=== PATIENT | female | born 1965 | race Caucasian/White ===

== ENCOUNTER 2019-07-06 15:38 | Outpatient (CLI) | payer BC, SELFPAY ==
--- NOTE | 2019-07-06 15:52 | MR_ITS ---
WS: [id number] MRI THORACIC SPINE WITHOUT CONTRAST TECHNIQUE: Sagittal T1, T2 and STIR imaging. Axial T2 imaging. Noncontrast imaging obtained. CLINICAL INFORMATION: RADICULOPATHY OF CERVICOTHORACIC REGION COMPARISON: None. FINDINGS: Mild thoracic curve. No acute compression. No high-grade central canal stenosis. Cord signal is lyn l. No significant disc bulging. A few tiny shallow central protrusions in the mid and lower thoracic spine without significant spinal canal narrowing. Shallow central protrusion at T6-T7, T9-10, T10-11, T11 -12 without significant central canal stenosis. Mild to moderate bony foraminal narrowing more p rominent at right T9-T10, bilateral T10-11, Endplate Schmorl's node at T12 superior endplate. Moderate facet arthropathy lower thoracic spine. Normal visualized thoracic aorta. Adrenal glands are normal. No hydronephrosis. Partially visualized left thyroid nodule measuring 1.8 cm. This can be followed up with thyroid ultrasound. MR/MR thoracic spin wo con* [id number] IMPRESSION: 1. Mild thoracic curve. No acute compression fractures. 2. No high-grade central canal stenosis. Cord signal is normal. 3. Tiny shallow central protrusion at T6-T7 with slight effacement of ventral thecal sac. 4. Mild to moderate bony foraminal narrowing worse at right T9-T10 and bilater al T10-11. 5. Moderate facet arthropathy in the lower thoracic spine. 6. Partially visualized left thyroid nodule measuring 1.8 cm. This can be foll owed up with thyroid ultrasound.
== END 2019-07-06 15:39 | disposition home or self-care (01) ==
LOC: RADSHAW 15:47
PROVIDERS: PCP Nurse Practitioner Family; Visit Provider Nurse Practitioner Family
DX: M54.13 Radiculopathy, cervicothoracic region (principal); M51.24 Other intervertebral disc displacement, thoracic region; E04.1 Nontoxic single thyroid nodule
CPT/HCPCS: 72146

== ENCOUNTER 2020-04-01 09:13 | Outpatient (RCR) | payer BC, SELFPAY | END 2020-04-03 23:59 | disposition home or self-care (01) | LOC: SPT 09:13 | PROVIDERS: PCP Nurse Practitioner Family; Referring Provider Nurse Practitioner Family; Visit Provider Nurse Practitioner Family | DX: M54.9 Dorsalgia, unspecified (principal); G89.29 Other chronic pain | CPT/HCPCS: 97161 ==

== ENCOUNTER 2020-04-04 06:00 | Outpatient (RCR) | payer BC, SELFPAY | END 2020-05-04 23:59 | disposition home or self-care (01) | LOC: SPT 06:00 | PROVIDERS: PCP Nurse Practitioner Family; Referring Provider Nurse Practitioner Family; Visit Provider Nurse Practitioner Family | DX: M54.9 Dorsalgia, unspecified (principal) | CPT/HCPCS: 97110; 97530 ==

== ENCOUNTER 2020-05-05 06:00 | Outpatient (RCR) | payer BC, SELFPAY | END 2020-06-03 23:59 | disposition home or self-care (01) | LOC: SPT 06:00 | PROVIDERS: PCP Nurse Practitioner Family; Referring Provider Nurse Practitioner Family; Visit Provider Nurse Practitioner Family | DX: M54.9 Dorsalgia, unspecified (principal) | CPT/HCPCS: 97110 ==

== ENCOUNTER 2020-06-04 06:00 | Outpatient (RCR) | payer BC, SELFPAY | END 2020-07-04 23:59 | disposition home or self-care (01) | LOC: SPT 06:00 | PROVIDERS: PCP Nurse Practitioner Family; Referring Provider Nurse Practitioner Family; Visit Provider Nurse Practitioner Family | DX: M54.9 Dorsalgia, unspecified (principal) | CPT/HCPCS: 97110 ==

== ENCOUNTER 2020-07-05 06:00 | Outpatient (RCR) | payer BC, SELFPAY | END 2020-08-04 23:59 | disposition home or self-care (01) | LOC: SPT 06:00 | PROVIDERS: PCP Nurse Practitioner Family; Referring Provider Nurse Practitioner Family; Visit Provider Nurse Practitioner Family | DX: M54.9 Dorsalgia, unspecified (principal); G89.29 Other chronic pain | CPT/HCPCS: 87635; 97110; 97530 ==

== ENCOUNTER 2022-01-18 04:08 | Emergency (ER) | payer OTHER, SELFPAY ==
[2022-01-18 04:13] VITALS: BP 130/79; PULSE 67; RESP 16; TEMP 36.9; O2SAT 97; BMI 36.8
--- NOTE | 2022-01-18 05:41 | XRR_ITS ---
PROCEDURE INFORMATION: Exam: XR Left Hip Exam date and time: 01/18/2022 6:06 AM Age: 56 years old Clinical indication: Hip pain; Left hip; Additional info: Left posterior hip pain TECHNIQUE: Imaging protocol: Radiologic exam of the Left hip. Views: 2 or 3 views hip with pelvis when performed. AP 1 view pelvis with 2 views hip COMPARISON: No relevant prior studies available. FINDINGS: Bones/joints: There is normal alignment without fractures or dislocations. Tiny left femoral head degenerative osteophytes are seen, suggestive of minimal degenerative change. The joint space appears grossly unremarkable. The visualized left sacroiliac joint shows moderate degenerative changes. Moderate symphysis pubis degenerative changes are seen. Soft tissues: There is no radiographic soft tissue swelling. There are no radiopaque foreign bodies. Some phleboliths are seen. Notes: If there is further concern, recommend follow-up radiographs or MRI for complete assessment. XR/XR hip LT 2-3V wo/w pel* [id number] IMPRESSION: No fracture or dislocation of the left hip. Degenerative changes, as noted above.
--- NOTE | 2022-01-18 05:44 | XRR_ITS ---
PROCEDURE INFORMATION: Exam: XR Lumbosacral Spine Exam date and time: 01/18/2022 6:06 AM Age: 56 years old Clinical indication: Low back pain; Additional info: Left posterior hip pain, radiculopathy TECHNIQUE: Imaging protocol: Radiologic exam of the lumbosacral spine. Views: 2 or 3 views. AP Lateral and Coned down lateral COMPARISON: No relevant prior studies available. FINDINGS: Bones/joints: There are 5 nonrib-bearing lumbar-type vertebrae. There is mild leftward curvature of the lower lumbar spine. There is 1 cm anterolisthesis of L4 on L5. There is 3 mm anterolisthesis of L5 on S1. The spinous processes and transverse processes appear unremarkable. Moderate bilateral sacroiliac joint degenerative changes are seen. Degenerative facet disease changes are seen in the mid to lower lumbar spine, severe at the L4-L5 and L5-S1 levels. Soft tissues: Paraspinal soft tissues are unremarkable. Mild to moderate L4-L5 and moderate L5-S1 disc space narrowing is seen, suggestive of degenerative disc disease change. Moderate to severe degenerative disc disease changes are also seen at the T11-12 level. Notes: If there is further concern or neurological abnormalities on clinical exam, CT or MRI of the lumbar spine may be performed for complete assessment. XR/XR lumbar spine 2-3V* [id number] IMPRESSION: No fractures of the lumbar spine. Degenerative changes, most prominent at the L4-L5 and L5-S1 levels, as noted above.
[2022-01-18 05:55] VITALS: RESP 18; O2SAT 97
[2022-01-18] MEDS: oxyCODONE-APAP 5-325 mg Tablet 1 TAB PO (05:55)
[2022-01-18] MEDS: predniSONE 20 mg Tablet 60 MG PO (05:58)
--- NOTE | 2022-01-18 05:58 | W.ED.EXTPRO ---
HPI - Extremity Problem General: Chief complaint: Extremity Problem,Nontraumatic Stated complaint: L Hip pain Time Seen by Provider: 01/18/22 05:37 Source: patient History of Present Illness: 56-year-old female with left-sided posterior hip pain. She notes for the past 5 days it has been sore. Yesterday it hurt more, and she sat in a wooden chair for quite a while at which point the pain became much worse. She took ibuprofen with some relief last night. Pain radiates down to her knee, and at times to her foot. No numbness or tingling. No weakness. No saddle anesthesia. MD Complaint: extremity pain Onset (ago): day(s) Pain Consistency: constant Location: left and lower extremity (Posterior hip) Quality: burning and aching Radiation: distal Exacerbating factors: weight bearing, walking and palpation Associated symptoms: Deny chest pain, fever(s), myalgias, rash or short of breath Review of Systems Const: Denies: fever(s) Card: Denies: chest pain Resp: Denies: dyspnea GI: Denies: abdominal pain : Denies: flank pain Musc: Reports: back pain Skin/Breast: Denies: rash Physical Exam HENMT: COMMON NORMALS: normocephalic HEAD & SCALP: normocephalic FACE & SINUS: normal facial exam and face symmetric Eye: COMMON NORMALS: Equal, round and reactive pupils present and EOMs intact bilaterally PUPIL: Yes Equal, round and reactive pupils present Neck/C-Spine: GENERAL: Yes trachea midline Chest: CHEST: Yes Symmetrical chest wall rise Resp: COMMON NORMALS: normal respiratory effort and No use of accessory muscles Cardio: COMMON NORMALS: regular rate and regular rhythm RATE: regular rate RHYTHM: regular rhythm Back/Pelvis: OTHER: Exam reveals tenderness over the L5-S1 area more so on the left than the right. There is some midline tenderness. There is tenderness of the piriformis, and greater trochanteric regions on the left as well. No deformity. Straight leg raise test causes some radiation to the mid to distal thigh. Extremity: OTHER: Logroll test is negative to the hip. Neuro: IMANI COMA SCALE: document [facility] findings [place] coma scale eye opening: Spontaneous Imani coma scale verbal response: Orientated Imani coma scale motor response: Obey commands [place] coma scale total score: 15 SENSORY EXAM: Yes extremities (Intact) Course Vital Signs: Vital signs: Vital Signs Temperature 97.8 F 01/18/22 06:49 Pulse Rate 74 01/18/22 06:49 Respiratory Rate 16 01/18/22 06:49 Blood Pressure 129/74 01/18/22 06:49 Pulse Oximetry 97 01/18/22 06:49 MDM - Extremity (Nontraumatic) Medical Decision Making Patient is not tender over her lumbar spine. She is tender over the sacroiliac joint on the left. No anterior hip tenderness. X-rays are pending. Lab Data Radiology Impressions Hip/Pelvis X-Ray 01/18/22 05:41 IMPRESSION: No fracture or dislocation of the left hip. Degenerative changes, as noted above. Lumbar Spine X-Ray 01/18/22 05:44 IMPRESSION: No fractures of the lumbar spine. Degenerative changes, most prominent at the L4-L5 and L5-S1 levels, as noted above. Discharge Plan Discharge Patient Disposition: Home Clinical Impression: Acute left lumbar radiculopathy Condition: Stable Prescriptions: New Percocet 7.5-325 mg tablet 1 tab PO Q6H PRN (Reason: pain) Qty: 10 0RF Medrol (Julio Cesar) 4 mg tablets,dose pack See Rx Instructions .ROUTE .COMPLEX Qty: 21 0RF Rx Instructions: orally per package directions Discharge Orders: Discharge ED (Routine); Ordered 01/18/22 Ordered By: Dale Kessler Referrals: Shahrzad Naik [Primary Care Provider] - 4-7 days Discharge Diet: Advance as tolerated Discharge Activity: Increase activity as tolerated Patient Instructions: Lumbar Radiculopathy (ED), Opioid Safety Activity Restrictions/Additional Instructions: Return for fever greater than 100, worsening pain despite treatment, numbness to the groin or genital region, inability to control your bladder or bowel function, any other concerning symptoms. Take the steroid medication as directed, use pain medication only for severe pain. Follow-up with your doctor this coming week. Coding Level of Care Code ED Barrel Filler Head for Bere Cano
[2022-01-18 06:49] VITALS: BP 129/74; PULSE 74; RESP 16; TEMP 36.6; O2SAT 97
== END 2022-01-18 06:50 | disposition home or self-care (01) ==
PROVIDERS: Emergency Provider Emergency Medicine; PCP Nurse Practitioner Family
DX: M54.16 Radiculopathy, lumbar region (principal)
CPT/HCPCS: 72100; 73502; 99283; J7512

== ENCOUNTER 2023-07-21 12:55 | Outpatient (RCR) | payer OTHER, SELFPAY | END 2023-08-04 23:59 | disposition home or self-care (01) | LOC: SPT 12:55 | PROVIDERS: PCP Nurse Practitioner Family; Visit Provider Nurse Practitioner Family | DX: M25.362 Other instability, left knee (principal) | CPT/HCPCS: 97110; 97161; 97530 ==

== ENCOUNTER 2023-08-05 06:00 | Outpatient (RCR) | payer OTHER, SELFPAY | END 2023-08-23 23:59 | disposition home or self-care (01) | LOC: SPT 06:00 | PROVIDERS: PCP Nurse Practitioner Family; Visit Provider Nurse Practitioner Family | DX: M25.362 Other instability, left knee (principal) | CPT/HCPCS: 97110; 97530 ==

== ENCOUNTER → 2023-12-20 08:37 | Outpatient (BNVA) | payer OTHER, SELFPAY | PROVIDERS: PCP Nurse Practitioner Family; Referring Provider Nurse Practitioner Family; Visit Provider Specialist | DX: M25.562 Pain in left knee (principal); G89.29 Other chronic pain | CPT/HCPCS: 73560; 73565 ==

== ENCOUNTER 2024-02-14 07:40 | Outpatient (CLI) | payer OTHER, SELFPAY ==
--- NOTE | 2024-02-14 07:43 | MR_ITS ---
WS: [id number] MRI LEFT KNEE ARTHROGRAM COMPARISON: Prior MRI knee 09/08/2023 Multiplanar, multisequence imaging is performed with contrast. Coronal gadolinium contrast injected i nto the joint space. HISTORY: LEFT lateral knee pain for 1 year. Good contrast injection and distention of the joint space. There is increasing marrow edema in the la teral tibial plateau as compared to the prior MRI. There is a subchondral cyst with loss of cartilage along the tibial plateau. There is a subchondral cyst at the base of the tibial spine. No fracture. Medial menisci are normal. Lateral meniscus: There is an abnormal appearance of the lateral meniscus. The anterior horn contains abnormal signal and contrast extending into the central portion and free edge of the meniscus. Surfa ce irregularity involving the superior and inferior surfaces of the anterior horn. There is additiona l very slight blunting and truncation of the free edge of the posterior horn. Anterior and posterior cruciate ligaments are normal. Biceps femoris tendon is normal. Fibular collat eral ligament is normal. MCL is normal. Popliteus tendon is normal. Mild chondromalacia involving the lateral patellar facet. Medial and lateral loss of joint space. Mor e significant chondromalacia involving the weightbearing surface of the lateral femoral condyle and t ibial plateau. MR/MR knee LT wo/w con [id number] IMPRESSION: 1. Increasing marrow edema throughout the lateral tibial plateau and increasin g subchondral cysts and loss of cartilage since 09/08/2023. No fracture. This all may be degenerative. 2. Abnormal signal in the anterior horn lateral meniscus consistent with a com plex tear. There is at least radial component of the meniscal tear with additio nal fraying along the superior and intra-articular surfaces. 3. Slight truncation free edge of the posterior lateral meniscus. 4. No ACL tear. 5. Mild chondromalacia lateral patellar facet.
--- NOTE | 2024-02-14 08:00 | IR_ITS ---
WS: [id number] LEFT knee ARTHROGRAM (FLUOROSCOPY) LEFT arthrogram was performed in fluoroscopy prior to MRI evaluation. HISTORY: knee pain COMPARISON: None. FLUOROSCOPY TIME: 0min [id number] # of spot films: 1 Procedure, risks and complications were explained to the patient. Complications include but not limit ed to bleeding, infection and contrast reaction. Current medications are reviewed. The injection was performed without Omnipaque contrast for localization. Patient is allergic to contr ast. Skin is cleansed with ChloraPrep. Skin is anesthetized with 1% buffered lidocaine. 22-gauge needle is inserted into the LEFT suprapatellar joint. Approximately 25 cc of gadolinium saline mixture injecte d without complication. Patient will proceed to MRI evaluation immediately. No complications were encountered. Patient is instructed to watch for post procedure infection or ble eding. Patient is also instructed to contact the radiology department with any concerns. IR/[place] [id number] IMPRESSION: Uncomplicated LEFT knee joint injection prior to MRI arthrogram.
== END 2024-02-14 07:41 | disposition home or self-care (01) ==
PROVIDERS: PCP Nurse Practitioner Family; Visit Provider Specialist
DX: M25.562 Pain in left knee (principal); M94.29 Chondromalacia, multiple sites; S83.282A Other tear of lateral meniscus, current injury, left knee, initial encounter; X58.XXXA Exposure to other specified factors, initial encounter
CPT/HCPCS: 27369; 73723; 77002; A9577

== ENCOUNTER 2024-03-29 09:55 | Outpatient (CLI) | payer OTHER, SELFPAY | END 2024-03-29 09:56 | disposition home or self-care (01) | LOC: SPT 09:56 | PROVIDERS: PCP Nurse Practitioner Family; Visit Provider Specialist | DX: Z46.89 Encounter for fitting and adjustment of other specified devices (principal); S89.92XD Unspecified injury of left lower leg, subsequent encounter; X58.XXXD Exposure to other specified factors, subsequent encounter; M17.12 Unilateral primary osteoarthritis, left knee | CPT/HCPCS: L1851 ==

== ENCOUNTER → 2025-04-28 12:47 | Outpatient (BNVA) | payer OTHER, SELFPAY | PROVIDERS: PCP Nurse Practitioner Family | DX: R30.0 Dysuria (principal) | CPT/HCPCS: 81000 ==